=== PATIENT | male | born 1930 | race Caucasian/White ===

== ENCOUNTER → 2017-02-17 | Outpatient (CLI) | payer MEDICARE, OTHER ==
[~2017-02-17] MED LIST: CONTRAST GIVEN MC PRN; IOHEXOL 240 MG/ML 50ML VIAL. PO ONE
--- NOTE | 2017-02-17 15:14 | RAD ---
Indication right sided groin pain radiating to the legs for 2 weeks. Axial images through the abdomen and pelvis were obtained. Oral contrast was administered. IV contrast was not. No prior CT imaging of the abdomen or pelvis is available. There is very small left pleural effusion. There is volume loss at the lung bases which may reflect atelectasis scar or pneumonia. There is significant coronary artery calcification. A focal mass lesion in the liver or spleen is not seen. Cholelithiasis is noted. The pancreas appears unremarkable. There is substantial cortical loss seen associated with both kidneys. There is a low-density 3 cm mass associated with the right kidney likely reflecting a cyst. No adrenal or anomalies are seen. Acute finding in the abdomen is not seen. IVC filter is noted. There are degenerative changes involving both hips. There is some calcification/ossification associated with some of the musculature about the right hip. 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 IMPRESSION: No acute finding seen in the abdomen or pelvis. Very small left pleural effusion. Volume loss at the lung bases compatible with atelectasis, scar or pneumonia. Cholelithiasis. Atrophied kidneys. Right renal mass probably reflecting an incidental cyst Chronic musculoskeletal changes. Ossification/calcification in the soft tissues about the right hip. Myositis ossificans is not excluded
== END | disposition home or self-care (01) ==
LOC: CT 12:44
PROVIDERS: ATTEND Internal Medicine
DX: K80.20 Calculus of gallbladder without cholecystitis without obstruction (principal); J90 Pleural effusion, not elsewhere classified; J98.11 Atelectasis; M25.851 Other specified joint disorders, right hip; I25.10 Atherosclerotic heart disease of native coronary artery without angina pectoris
CPT/HCPCS: 74176; Q9966